=== PATIENT | female | born 1975 | race Caucasian/White ===

== ENCOUNTER 2019-03-27 13:15 | Emergency (ER) | payer OTHER, BC ==
[~2019-03-27] VITALS: Ht 165.1 cm; Wt 127.0 kg
[~2019-03-27 13:15] MED LIST: NAPROSYN500 MG PO; NORCO 5-325 TA1 EACH PO
[2019-03-27 13:27] VITALS: BP 138/91
[2019-03-27] MEDS ORDERED: MEDROXYPROGEST2.5 MG PO (13:31)
[2019-03-27] MEDS ORDERED: GYNODIOL0.5 MG PO (13:31)
[2019-03-27] MEDS ORDERED: OMEPRAZOLE20 M1 PO (13:32)
[2019-03-27] MEDS ORDERED: NAPROSYN500 MG PO (14:08)
[2019-03-27] MEDS ORDERED: ROBAXIN 750 MG750 MG PO (14:08)
== END 2019-03-27 14:17 | disposition home or self-care (01) ==
LOC: ER 13:15
DX: S46.811A Strain of other muscles, fascia and tendons at shoulder and upper arm level, right arm, initial encounter (principal); S00.31XA Abrasion of nose, initial encounter; F17.210 Nicotine dependence, cigarettes, uncomplicated; K21.9 Gastro-esophageal reflux disease without esophagitis; V89.2XXA Person injured in unspecified motor-vehicle accident, traffic, initial encounter; Y92.89 Other specified places as the place of occurrence of the external cause; Y93.89 Activity, other specified; Y99.8 Other external cause status